=== PATIENT | female | born 1990 | race Hispanic/Latino ===

== ENCOUNTER 2022-06-02 12:04 | Emergency (ER) | payer MEDICAID, OTHER ==
[~2022-06-02] VITALS: Ht 157.5 cm; Wt 82.6 kg
[2022-06-02 12:33] LABS: APPEARANCE,URINE CLEAR (CLEAR); BILIRUBIN,URINE NEGATIVE (NEGATIVE); COLOR,URINE YELLOW (YELLOW); GLUCOSE, URINE (UA) NEGATIVE (NEGATIVE); KETONES,URINE 5 mg/dL (NEGATIVE); LEUKOCYTE ESTERASE ,URINE MODERATE (NEGATIVE); NITRATE,URINE NEGATIVE (NEGATIVE); OCCULT BLOOD,URINE SMALL (NEGATIVE); PROTEIN,URINE NEGATIVE (NEGATIVE)
[2022-06-02 12:36] LABS: HCG,QUAL RESULT NEGATIVE (NEGATIVE)
[2022-06-02] MEDS ORDERED: ACETAMINOPHEN WITH CODEINE 1 TAB TAB PO ONE (13:00)
[2022-06-02] MEDS ORDERED: LIDOCAINE HCL MPF 1% 5ML VIAL IM SCH (13:00)
[2022-06-02] MEDS ORDERED: LIDOCAINE HCL 1% MDV 50ML VIAL ONE (13:00)
[2022-06-02 13:02] LABS: BACTERIA,URINE Moderate /HPF (None Seen); MUCUS,URINE Many LPF (None Seen); RBC,URINE 0-1 /HPF (0-1); SQUAMOUS EPITHELIAL CELL,UR Few /HPF (0-2); WBC,URINE 51-100 /HPF (0-1)
[2022-06-02 13:20] VITALS: BP 135/86
[2022-06-02] MEDS ORDERED: ACET-2079 PO (13:59)
[2022-06-02] MEDS ORDERED: CLIN-141 PO (13:59)
[2022-06-02] MEDS ORDERED: CEFI400C4 PO (13:59)
== END 2022-06-02 14:17 | disposition home or self-care (01) ==
LOC: EDH 12:04
DX: N75.0 Cyst of Bartholin's gland (principal)
CPT/HCPCS: 56420; 81001; 81025; 87088; J3490